=== PATIENT | male | born 1960 | race African-American/Black ===

== ENCOUNTER 2017-04-29 12:47 | Emergency (ER) | payer BC, MEDICAID ==
[~2017-04-29] VITALS: Ht 182.9 cm; Wt 108.9 kg
[~2017-04-29 12:47] MED LIST: ASPI81TA2 PO; CARV6.252 PO; HYDR-548 PO; MULT1CAP34 PO; SIMV10TA6 PO
--- NOTE | 2017-04-29 12:55 | NUR ---
BIB , C/O X 3 DAYS C/O HALLUCINATIONS, STATES SI WITH NO PLAN. DENIES HI, NAD NOTED, VSS, WAITING FOR MD.
[2017-04-29 13:19] LABS: BASOPHILS # (AUTO) 0.1 /CMM (0.0-0.2); BASOPHILS % (AUTO) 0.8 % (0.0-2.0); EOSINOPHILS # (AUTO) 0.2 /CMM (0.0-0.7); EOSINOPHILS % (AUTO) 2.1 % (0.0-6.0); HEMATOCRIT 52 % (39-51); HEMOGLOBIN 17.3 g/dL (13.5-17.5); LYMPHOCYTES # (AUTO) 3.2 /CMM (0.8-4.8); LYMPHOCYTES % (AUTO) 28.1 % (20.0-44.0); MEAN CORPUSCULAR HEMOGLOBIN 29 PG (26.0-33.0); MEAN CORPUSCULAR HGB CONC 34 g/dl (31.0-36.0); MEAN CORPUSCULAR VOLUME 87 fL (80-96); MONOCYTES # (AUTO) 1.1 /CMM (0.1-1.30); MONOCYTES % (AUTO) 9.7 % (2.0-12.0); NEUTROPHILS # (AUTO) 6.7 /CMM (1.8-8.9); NEUTROPHILS % (AUTO) 59.3 % (43.0-81.0); PLATELET COUNT (AUTO) 194 /CMM (150-450); RDW COEFFICIENT OF VARIATION 12.6 (11.5-15.0); RED BLOOD CELL COUNT(AUTO) 5.95 MIL/uL (4.5-6.0); WHITE BLOOD COUNT (AUTO) 11.3 K/uL (4.3-11.0)
[2017-04-29 13:26] LABS: APPEARANCE,URINE Clear (CLEAR); BILIRUBIN,URINE MODERATE (NEGATIVE); BLOOD, URINE Negative Ery/uL (NEGATIVE); COLOR,URINE Dark (YELLOW); KETONES,URINE Trace (NEGATIVE); LEUKOCYTE ESTERASE ,URINE Negative (NEGATIVE); NITRITE, URINE Negative (NEGATIVE); PROTEIN,URINE 30 mg/dl (NEGATIVE); UGLUCOSE Negative (NEGATIVE)
[2017-04-29 13:29] LABS: CALCIUM, SERUM 9.6 mg/dL (8.5-10.1); CARBON DIOXIDE 24 mmol/L (21-32); CHLORIDE 107 mmol/L (98-107); GLUCOSE 88 mg/dL (74-106); POTASSIUM 4.1 mmol/L (3.5-5.1); SODIUM SERUM 141 mmol/L (136-145); UREA NITROGEN, BLOOD 24 mg/dL (7-18)
[2017-04-29 13:34] LABS: ACETAMINOPHEN < 10 ug/ml (10-30); ALANINE AMINOTRANSFERASE 27 U/L (12-78); ALBUMIN 3.8 g/dL (3.4-5.0); ALCOHOL, BLOOD < 3 mg/dL (0-0); ALKALINE PHOSPHATASE 97 U/L (46-116); ASPARTATE AMINOTRANSFERASE 29 U/L (15-37); BILIRUBIN,DIRECT 0.2 mg/dL (0.0-0.2); BILIRUBIN,TOTAL 0.6 mg/dL (0.2-1.0); SALICYLATE 3.5 mg/dL (2.8-20.0); TOTAL PROTEIN, SERUM 7.7 g/dL (6.4-8.2)
[2017-04-29 13:41] LABS: BACTERIA,URINE Rare /HPF (None Seen); RBC,URINE 0-2 /HPF (0-2); WBC,URINE 0-2 /HPF (0-3)
[2017-04-29 13:42] LABS: MUCUS,URINE Few /LPF (None Seen); SQUAMOUS EPITHELIAL CELL,UR Moderate /HPF (None Seen)
--- NOTE | 2017-04-29 14:52 | NUR ---
PT ACCEPTED TO [facility] [address] LOZANO ACCEPTING PHYSICIAN
--- NOTE | 2017-04-29 14:55 | NUR ---
CALLED [facility], NO RESPONSE
--- NOTE | 2017-04-29 15:06 | NUR ---
CALLED [facility], NO RESPONSE
--- NOTE | 2017-04-29 15:08 | NUR ---
CALLED [facility], NO RESPONSE
--- NOTE | 2017-04-29 15:09 | NUR ---
CALLED [facility], LINE DISCONNECTED
--- NOTE | 2017-04-29 15:28 | NUR ---
CALLED [facility] TO SET UP BLS TRANSPORT HOME, SPOKE WITH DE. AFTER 15 MINUTES LINE WAS DISCONNECTED
--- NOTE | 2017-04-29 15:28 | NUR ---
DE FROM [facility] CALLED BACK TO INFORM THAT LINES WERE DISCONNECTED AND SYSTEM IS DOWN. SHE MAY BE ABLE TO PROVIDE A 90 MINUTE ETA, HOWEVER THEIR SYSTEM IS DOWN AND SHE IS UNABLE TO PROVIDE A TRIP NUMBER
[2017-04-29 15:55] VITALS: BP 127/70
--- NOTE | 2017-04-29 15:55 | NUR ---
Patient is resting comfortably in bed with eyes closed. Easily aroused. VSS
--- NOTE | 2017-04-29 16:42 | NUR ---
REPORT GIVEN TO VIVIANA.
== END 2017-04-29 17:01 ==
LOC: ER 12:50
DX: R45.851 Suicidal ideations (principal); I10 Essential (primary) hypertension; J44.9 Chronic obstructive pulmonary disease, unspecified; F17.210 Nicotine dependence, cigarettes, uncomplicated; Z79.82 Long term (current) use of aspirin
CPT/HCPCS: 36415; 80048; 80076; 80305; 80329; 81001; 85025; 99285; 99406; A4606; G0480 ×2; Z7610; 81000-TC

== ENCOUNTER 2021-06-10 18:08 | Inpatient (IN) | payer MEDICARE, OTHER ==
[~2021-06-10] VITALS: Ht 175.3 cm; Wt 86.2 kg
[~2021-06-10 18:08] MED LIST changes: +ASPI-1169 PO; -ASPI81TA2 PO; +HYDR-4354 PO; -HYDR-548 PO; -SIMV10TA6 PO; +SIMV10TA98 PO
[2021-06-11] MEDS ORDERED: DIVA-78 PO (13:29)
[2021-06-11] MEDS ORDERED: HYDR30CR79 RC (13:29)
[2021-06-11] MEDS ORDERED: LISI10TA29 PO (13:29)
[2021-06-11] MEDS ORDERED: POLY17PO4 PO (13:29)
[2021-06-11] MEDS ORDERED: TRAM50TA PO (13:29)
[2021-06-11] MEDS ORDERED: ARIP2TAB3 PO (13:29)
[2021-06-11] MEDS ORDERED: METF-440 PO (13:37)
[2021-06-11 14:00] VITALS: BP 132/79
[2021-06-11] MEDS ORDERED: BLOOD SUGAR DIAGNOSTIC 1 EACH STRIP IN ONE (14:00)
[2021-06-11] MEDS ORDERED: MAGNESIUM HYDROXIDE 30 ML UDC PO PRN (14:00)
[2021-06-11] MEDS ORDERED: ACETAMINOPHEN 325 MG TABLET PO PRN (14:00)
[2021-06-11] MEDS ORDERED: MAG HYDROX/AL HYDROX/SIMETH 30 ML UDC PO PRN (14:00)
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
--- NOTE | 2021-06-11 15:19 | NUR ---
GPS/RN PT REUSED ACCUCHECK ON ADMISSION OFFERED X3
[2021-06-11 16:00] VITALS: BP 132/79
[2021-06-11] MEDS: METFORMIN 500 MG TABLET PO SCH (16:59)
[2021-06-11] MEDS ORDERED: DEXTROSE 50%-WATER 50 ML DISP.SYRIN IV PRN (17:00)
[2021-06-11] MEDS ORDERED: TRAMADOL HCL 50 MG TABLET PO PRN (17:00)
[2021-06-11] MEDS ORDERED: HYDROCORTISONE CR 30 GM TUBE RC PRN ×2 (17:00)
[2021-06-11] MEDS ORDERED: *INSULIN REGULAR(HUMULIN R)HUM 100 UNIT/ML VIAL SQ PRN (17:00)
[2021-06-11] MEDS: BLOOD SUGAR DIAGNOSTIC 1 EACH STRIP VI SCH ×2 (17:19→21:25)
[2021-06-11] MEDS: SIMVASTATIN 10 MG TABLET PO SCH (18:16)
[2021-06-11 20:02] VITALS: BP 123/76
[2021-06-12] MEDS: LORAZEPAM 1 MG TABLET PO PRN ×2 (06:16→13:09)
--- NOTE | 2021-06-12 06:18 | NUR ---
GPS RN NOTES: PATIENT IS AGITATED, ANXIOUS, RESTLESS, PACING, LOUD, STATING"I WANT OUT OF HERE RIGHT NOW". REFUSING REDIRECTION. ATIVAN 1MG GIVEN PO AT 0616. WILL CONTINUE TO MONITOR. AND ENDORSE TO AM SHIFT.
[2021-06-12] MEDS: POLYETHYLENE GLYCOL 3350 17 GM POWD.PACK PO SCH (06:28)
--- NOTE | 2021-06-12 07:18 | NUR ---
RN NOTE RECEIVED PATIENT RESTING IN BED. PATIENT IS BREATHING EVENLY AND NONLABORED ON ROOM AIR. NO SIGNS OF DISTRESS NOTED. PATIENT DENIES PAIN OR DISCOMFORT. SAFETY MEASURES IN PLACE BED LOW LOCKED. WILL CONTINUE TO MONITOR
[2021-06-12] MEDS: BLOOD SUGAR DIAGNOSTIC 1 EACH STRIP VI SCH ×2 (07:43→11:17)
[2021-06-12] MEDS: INSULIN REGULAR, HUMAN 100 UNIT/ML 3 ML VIAL SQ PRN ×2 (07:43→11:17)
[2021-06-12 07:55] LABS: ALBUMIN 2.7 g/dL (3.4-5.0); BILIRUBIN,TOTAL 0.3 mg/dL (0.2-1.0); CALCIUM, SERUM 8.6 mg/dL (8.5-10.1); CREATININE 0.8 mg/dL (0.6-1.3); POTASSIUM 4.4 mmol/L (3.5-5.1); TOTAL PROTEIN, SERUM 7.3 g/dL (6.4-8.2)
[2021-06-12 08:00] VITALS: BP 142/76
[2021-06-12 08:15] LABS: THYROID STIMULATING HORMONE 1.084 uIU/mL (0.358-3.74)
[2021-06-12] MEDS: ASPIRIN 81 MG TAB.CHEW PO SCH (08:27)
[2021-06-12] MEDS: LISINOPRIL (10MG) 10 MG TABLET PO SCH (08:28)
[2021-06-12] MEDS: MULTIVITAMINS,THERAGRAN 1 UDTAB TABLET PO SCH (08:28)
[2021-06-12] MEDS: METFORMIN 500 MG TABLET PO SCH (08:28)
[2021-06-12] MEDS: risperiDONE 1 MG TABLET PO SCH ×2 (09:31→17:02)
[2021-06-12] MEDS: DIVALPROEX SODIUM 250 MG TABLET.DR PO SCH ×3 (09:31→17:02)
--- NOTE | 2021-06-12 11:51 | NUR ---
RN NOTE MD GAVE NEW ORDER TO DC THE ACCUCHECKS AND CONTINUE ON ORAL MEDICATIONS
--- NOTE | 2021-06-12 13:09 | NUR ---
GPS RN NOTES: PATIENT IS AGITATED, ANXIOUS, RESTLESS, PACING, LOUD, STATING"I WANT OUT OF HERE RIGHT NOW". REFUSING REDIRECTION. ATIVAN 1MG GIVEN PO AT 1309. WILL CONTINUE TO MONITOR.
[2021-06-12 16:00] VITALS: BP 100/59
[2021-06-12] MEDS: SIMVASTATIN 10 MG TABLET PO SCH (17:02)
--- NOTE | 2021-06-12 18:02 | NUR ---
RN CLOSING NOTES PATIENT AWAKE IN BED AT THIS TIME. PATIENT REMAINED STABLE THROUGHOUT SHIFT. PT IS CALM AT THIS TIME, PT DENIES SI/HI. DENIES VISUAL AND AUDITORY HALLUCINATION. NO TREMORS OR EPS NOTED. SAFETY PRECAUTIONS IN PLACE AND MAINTAINED AT ALL TIMES. BED IN LOWEST LOCKED POSITION, HOB ELEVATED, SIDE RAILS UP X2, CALL LIGHT AND TABLE WITHIN REACH, WILL ENDORSE TO ONCOMING SHIFT
[2021-06-12 19:54] VITALS: BP 90/50
[2021-06-13] MEDS: POLYETHYLENE GLYCOL 3350 17 GM POWD.PACK PO SCH (06:16)
[2021-06-13 08:00] VITALS: BP 101/64
[2021-06-13] MEDS: LISINOPRIL (10MG) 10 MG TABLET PO SCH (09:00)
[2021-06-13] MEDS: ASPIRIN 81 MG TAB.CHEW PO SCH (10:16)
[2021-06-13] MEDS: MULTIVITAMINS,THERAGRAN 1 UDTAB TABLET PO SCH (10:17)
[2021-06-13] MEDS: DIVALPROEX SODIUM 250 MG TABLET.DR PO SCH ×3 (10:17→17:34)
[2021-06-13] MEDS: risperiDONE 1 MG TABLET PO SCH ×2 (10:17→17:34)
--- NOTE | 2021-06-13 11:53 | NUR ---
CANDIDO Initial Discharge Plan: Patient is currently homeless and would want a SNF. CANDIDO will work with the MD and pt to coordinate appropriate discharge.
--- NOTE | 2021-06-13 12:45 | NUR ---
Social Work Note/Substance Abuse Intervention: SW attempted to provide with a brief substance abuse intervention and referred to [facility] ([phone]), [facility] ([phone]), and [facility] ([phone]). Pt refused for brief substance abuse intervention and denied use of drugs.
[2021-06-13 16:00] VITALS: BP 100/56
[2021-06-13] MEDS: SIMVASTATIN 10 MG TABLET PO SCH (17:34)
[2021-06-13 19:47] VITALS: BP 102/58
[2021-06-13] MEDS: LORAZEPAM 1 MG TABLET PO PRN (20:39)
[2021-06-13] MEDS: ZOLPIDEM TARTRATE 5 MG TABLET PO PRN (22:34)
[2021-06-14] MEDS: POLYETHYLENE GLYCOL 3350 17 GM POWD.PACK PO SCH (05:12)
[2021-06-14 08:00] VITALS: BP 112/60
[2021-06-14] MEDS: risperiDONE 1 MG TABLET PO SCH ×2 (09:00→17:00)
[2021-06-14] MEDS: MULTIVITAMINS,THERAGRAN 1 UDTAB TABLET PO SCH (09:00)
[2021-06-14] MEDS: ASPIRIN 81 MG TAB.CHEW PO SCH (09:00)
[2021-06-14] MEDS: DIVALPROEX SODIUM 250 MG TABLET.DR PO SCH ×3 (09:00→17:00)
[2021-06-14] MEDS: LISINOPRIL (10MG) 10 MG TABLET PO SCH (09:00)
--- NOTE | 2021-06-14 10:57 | NUR ---
WOUND CARE CONSULT: PT SEEN FOR RAISED LESIONS TO SCROTUM AND PERIANAL AREA, PRESENT ON ADMISSION. DEFER TO PMD FOR LESIONS, UNKNOWN ETIOLOGY.
--- NOTE | 2021-06-14 12:00 | NUR ---
PT SEEN BY GENARO DUNBAR MIXER DRIVER, FOR RAISED LESIONS TO SCROTUM AND PERIANAL AREA, PRESENT ON ADMISSION. NNO AT THIS TIME.
[2021-06-14 16:01] VITALS: BP 102/61
[2021-06-14] MEDS: SIMVASTATIN 10 MG TABLET PO SCH (17:00)
[2021-06-14 20:10] VITALS: BP 91/37
[2021-06-15] MEDS: POLYETHYLENE GLYCOL 3350 17 GM POWD.PACK PO SCH (06:52)
[2021-06-15 08:00] VITALS: BP 107/61
--- NOTE | 2021-06-15 08:39 | NUR ---
SNF Referral: SW sent clinicals to [facility] for [facility] for placement option ([phone]).
--- NOTE | 2021-06-15 09:31 | NUR ---
CANDIDO Family Contact: CANDIDO spoke with patient's brother Breonna who lives in [place] ([phone]) and gathered collateral. Brother was concerned if pt has prostate cancer. CANDIDO notified pt's assigned nurse PEYTON Elias to notify medical doctor.
[2021-06-15] MEDS: risperiDONE 1 MG TABLET PO SCH ×2 (09:51→16:34)
[2021-06-15] MEDS: ASPIRIN 81 MG TAB.CHEW PO SCH (09:51)
[2021-06-15] MEDS: DIVALPROEX SODIUM 250 MG TABLET.DR PO SCH ×3 (09:52→16:34)
[2021-06-15] MEDS: MULTIVITAMINS,THERAGRAN 1 UDTAB TABLET PO SCH (09:52)
[2021-06-15] MEDS: LISINOPRIL (10MG) 10 MG TABLET PO SCH (09:52)
--- NOTE | 2021-06-15 14:29 | NUR ---
SW Note: SW attempted to conduct individual therapy. Pt was fixated on discharge and his placement. He was vague with this SW and was wanting to discuss about placement only. SW unable to conduct proper therapy at this time.
[2021-06-15 16:00] VITALS: BP 100/51
[2021-06-15] MEDS: SIMVASTATIN 10 MG TABLET PO SCH (17:31)
[2021-06-15 20:00] VITALS: BP 102/57
[2021-06-15 20:01] LABS: PROSTATE SPECIFIC ANTIGEN SCR 1.06 ng/mL (0.00-4.00)
[2021-06-15] MEDS: ZOLPIDEM TARTRATE 5 MG TABLET PO PRN (22:18)
[2021-06-16] MEDS: POLYETHYLENE GLYCOL 3350 17 GM POWD.PACK PO SCH (05:53)
[2021-06-16 08:00] VITALS: BP 100/60
[2021-06-16] MEDS: LISINOPRIL (10MG) 10 MG TABLET PO SCH (08:32)
[2021-06-16] MEDS: MULTIVITAMINS,THERAGRAN 1 UDTAB TABLET PO SCH (08:32)
[2021-06-16] MEDS: DIVALPROEX SODIUM 250 MG TABLET.DR PO SCH ×2 (08:32→16:34)
[2021-06-16] MEDS: risperiDONE 1 MG TABLET PO SCH ×2 (08:32→16:34)
[2021-06-16] MEDS: ASPIRIN 81 MG TAB.CHEW PO SCH (08:34)
[2021-06-16 16:00] VITALS: BP 105/63
--- NOTE | 2021-06-16 16:08 | NUR ---
Court Hearing: Patient's court hearing for 2370 was today and it was upheld for GD.
[2021-06-16] MEDS: SIMVASTATIN 10 MG TABLET PO SCH (17:33)
[2021-06-16 20:00] VITALS: BP 120/74
[2021-06-16] MEDS: ZOLPIDEM TARTRATE 5 MG TABLET PO PRN (21:42)
--- NOTE | 2021-06-16 21:45 | NUR ---
RN NOTES : INSOMNIA PT. C/O UNABLE TO SLEEP AMBIEN 5 MG PO PRN, GIVEN PER PT. REQUEST, WILL CONTINUE TO MONITOR.
[2021-06-17] MEDS: POLYETHYLENE GLYCOL 3350 17 GM POWD.PACK PO SCH (05:32)
--- NOTE | 2021-06-17 06:49 | NUR ---
RN NOTES: PT. REFUSED TO PROVIDED URINE SAMPLE , ENCOURAGED X 3 STILL REFUSED.
[2021-06-17 08:00] VITALS: BP 134/63
[2021-06-17] MEDS: LISINOPRIL (10MG) 10 MG TABLET PO SCH (08:50)
[2021-06-17] MEDS: DIVALPROEX SODIUM 250 MG TABLET.DR PO SCH ×2 (08:50→16:13)
[2021-06-17] MEDS: MULTIVITAMINS,THERAGRAN 1 UDTAB TABLET PO SCH (08:50)
[2021-06-17] MEDS: risperiDONE 1 MG TABLET PO SCH ×2 (08:50→16:12)
[2021-06-17] MEDS: ASPIRIN 81 MG TAB.CHEW PO SCH (08:52)
[2021-06-17 16:00] VITALS: BP 99/59
[2021-06-17] MEDS: SIMVASTATIN 10 MG TABLET PO SCH (17:15)
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
[2021-06-17 20:08] VITALS: BP 99/58
[2021-06-17] MEDS: ZOLPIDEM TARTRATE 5 MG TABLET PO PRN (22:05)
--- NOTE | 2021-06-17 22:06 | NUR ---
RN NOTES : INSOMNIA PT. C/O UNABLE TO SLEEP AMBIEN 5 MG PO PRN, GIVEN PER PT. REQUEST, WILL CONTINUE TO MONITOR.
[2021-06-18] MEDS: POLYETHYLENE GLYCOL 3350 17 GM POWD.PACK PO SCH (06:16)
[2021-06-18 08:00] VITALS: BP 104/63
[2021-06-18] MEDS: LISINOPRIL (10MG) 10 MG TABLET PO SCH (08:27)
[2021-06-18] MEDS: ASPIRIN 81 MG TAB.CHEW PO SCH (08:37)
[2021-06-18] MEDS: risperiDONE 1 MG TABLET PO SCH ×2 (08:37→18:24)
[2021-06-18] MEDS: DIVALPROEX SODIUM 250 MG TABLET.DR PO SCH ×2 (08:37→18:25)
[2021-06-18] MEDS: MULTIVITAMINS,THERAGRAN 1 UDTAB TABLET PO SCH (08:38)
[2021-06-18 16:00] VITALS: BP 116/67
[2021-06-18 18:06] LABS: *HIV-1 RNA BY PCR <20 copies/mL (.)
[2021-06-18] MEDS: SIMVASTATIN 10 MG TABLET PO SCH (18:25)
[2021-06-18 20:06] VITALS: BP 106/69
[2021-06-18] MEDS: ZOLPIDEM TARTRATE 5 MG TABLET PO PRN (22:17)
--- NOTE | 2021-06-18 22:18 | NUR ---
RN NOTES : INSOMNIA PT. C/O UNABLE TO SLEEP AMBIEN 5 MG PO PRN, GIVEN PER PT. REQUEST, WILL CONTINUE TO MONITOR.
[2021-06-19] MEDS: POLYETHYLENE GLYCOL 3350 17 GM POWD.PACK PO SCH (06:04)
[2021-06-19 08:00] VITALS: BP 146/83
[2021-06-19] MEDS: DIVALPROEX SODIUM 250 MG TABLET.DR PO SCH ×2 (08:52→17:47)
[2021-06-19] MEDS: ASPIRIN 81 MG TAB.CHEW PO SCH (08:52)
[2021-06-19] MEDS: LISINOPRIL (10MG) 10 MG TABLET PO SCH (08:53)
[2021-06-19] MEDS: risperiDONE 1 MG TABLET PO SCH ×2 (08:53→17:47)
[2021-06-19] MEDS: MULTIVITAMINS,THERAGRAN 1 UDTAB TABLET PO SCH (08:53)
[2021-06-19 16:00] VITALS: BP 111/67
[2021-06-19] MEDS: SIMVASTATIN 10 MG TABLET PO SCH (17:54)
[2021-06-19 19:48] VITALS: BP 107/64
[2021-06-19 20:15] VITALS: BP 107/64
--- NOTE | 2021-06-19 23:30 | NUR ---
rRN NOTE: REFUSED SKIN ASSESSMENT PATIENT REFUSED WEEKLY SKIN ASSESSMENT X 3 DESPITE OF RISKS AND BENEFITS EXPLANATIONS.
[2021-06-20] MEDS: POLYETHYLENE GLYCOL 3350 17 GM POWD.PACK PO SCH (06:08)
[2021-06-20 08:00] VITALS: BP 130/52
[2021-06-20] MEDS: ASPIRIN 81 MG TAB.CHEW PO SCH (09:08)
[2021-06-20] MEDS: MULTIVITAMINS,THERAGRAN 1 UDTAB TABLET PO SCH (09:09)
[2021-06-20] MEDS: risperiDONE 1 MG TABLET PO SCH ×2 (09:09→17:41)
[2021-06-20] MEDS: LISINOPRIL (10MG) 10 MG TABLET PO SCH (09:09)
[2021-06-20] MEDS: DIVALPROEX SODIUM 250 MG TABLET.DR PO SCH ×2 (09:09→17:41)
[2021-06-20 09:34] LABS: CALCIUM, SERUM 8.7 mg/dL (8.5-10.1); CREATININE 0.8 mg/dL (0.6-1.3); POTASSIUM 4.7 mmol/L (3.5-5.1)
[2021-06-20 16:00] VITALS: BP 106/60
[2021-06-20] MEDS: SIMVASTATIN 10 MG TABLET PO SCH (18:10)
[2021-06-20 19:45] VITALS: BP 119/66
[2021-06-20] MEDS: ZOLPIDEM TARTRATE 5 MG TABLET PO PRN (21:05)
--- NOTE | 2021-06-20 21:05 | NUR ---
RN NOTES : INSOMNIA PATIENT C/O UNABLE TO SLEEP. PRN AMBIEN 5MG PO GIVEN ORDERED PER PT. REQUEST. WILL CONTINUE TO MONITOR.
[2021-06-21] MEDS: POLYETHYLENE GLYCOL 3350 17 GM POWD.PACK PO SCH (05:08)
[2021-06-21 08:00] VITALS: BP 100/57
--- NOTE | 2021-06-21 08:07 | NUR ---
SW Discharge Note: Patient will be discharged to [facility] to [facility] [address] [place] [address]; . Please arrange Ambulance transportation for patient to be picked up at 2PM. Certified Dietary Manager spoke with RICHA, Engraver Lettering at [facility]; ([phone], who stated patient will be accepted at facility today. Patient is alert and oriented x3, and is not able to plan for self-care at this time, but is willing to accept care provided for her at the facility. Patient denies any suicidal or homicidal ideations. Patient is aware and agreeable with discharge plans. Patient does not have any support at this time. Patient will follow-up at the facility with Dr. Edwards (psychiatrist) [address] [address]; ([phone]) and Criminal Justice Lawyer Dr. Boateng at [address], [place] [address]; ([phone]). Patient signed the homeless waiver upon discharge and a copy was placed in the chart. Homeless resources were provided and include [address] information line for shelters and homeless resources. A copy of all resources given to patient was also placed in the chart. Patient was provided with a brief substance abuse intervention and referred to [facility] ([phone]), [facility] ([phone]), and [facility] ([phone]) for abusing drugs and smoking
[2021-06-21 08:38] VITALS: BP 100/57
[2021-06-21] MEDS: LISINOPRIL (10MG) 10 MG TABLET PO SCH (08:38)
[2021-06-21] MEDS: MULTIVITAMINS,THERAGRAN 1 UDTAB TABLET PO SCH (08:38)
[2021-06-21] MEDS: risperiDONE 1 MG TABLET PO SCH (08:38)
[2021-06-21] MEDS: ASPIRIN 81 MG TAB.CHEW PO SCH (08:38)
[2021-06-21] MEDS: DIVALPROEX SODIUM 250 MG TABLET.DR PO SCH (08:38)
--- NOTE | 2021-06-21 14:20 | NUR ---
Patient has been discharged to [facility] facility to [facility] via Ambulance transportation at 1410pm. Patient is alert and oriented x3, with steady gait, however, pt is not able to plan for self-care at this time, but is willing to accept care provided for her at the facility. Patient denies any suicidal or homicidal ideations. Patient is aware and agreeable with discharge plans. Patient does not have any support at this time. Patient will follow-up at the facility with Dr. Edwards (psychiatrist) and [place] Dr. Boateng. Patient signed the homeless waiver upon discharge and a copy was placed in the chart. Homeless resources were provided and include [address] information line for shelters and homeless resources. A copy of all resources given to patient was also placed in the chart. Patient was provided with a brief substance abuse intervention and referred to [facility] ([phone]), [facility] ([phone]), and [facility] ([phone]) for abusing drugs and smoking. Exit care documents signed and given to Pt in discharge packet along with instructions for after care. Medication reconciliation given in discharge packet. all valuables and belongings returned and signed.
== END 2021-06-21 14:10 | DRG 885 ==
LOC: GPS 06-11 13:07
PROVIDERS: ADMIT Psychiatry & Neurology Psychiatry; ATTEND Student in an Organized Health Care Education/Training Program
DX: F31.64 Bipolar disorder, current episode mixed, severe, with psychotic features (principal); E44.0 Moderate protein-calorie malnutrition; E86.0 Dehydration; E78.5 Hyperlipidemia, unspecified; I10 Essential (primary) hypertension; Z59.00 Homelessness unspecified; F17.210 Nicotine dependence, cigarettes, uncomplicated; F41.9 Anxiety disorder, unspecified; F15.10 Other stimulant abuse, uncomplicated; Z68.28 Body mass index [BMI] 28.0-28.9, adult; F29 Unspecified psychosis not due to a substance or known physiological condition; E11.9 Type 2 diabetes mellitus without complications; G47.30 Sleep apnea, unspecified; A63.0 Anogenital (venereal) warts; Z79.84 Long term (current) use of oral hypoglycemic drugs; Z20.822 Contact with and (suspected) exposure to COVID-19
CPT/HCPCS: 36415; 80048-TC; 80053-TC; 80061-TC; 80164-TC; 82962-TC; 84153-TC; 84154-TC; 84443-TC; 87081-TC; 87536; 97116-TC; 97530-TC; J1815

== ENCOUNTER 2021-07-23 12:13 | Emergency (ER) | payer MEDICARE, OTHER ==
[~2021-07-23] VITALS: Ht 175.3 cm; Wt 98.9 kg
[~2021-07-23 12:13] MED LIST changes: -CARV6.252 PO; -HYDR-4354 PO; +HYDR30CR79 RC; +LISI10TA29 PO; +METF-440 PO; +POLY17PO4 PO; +TRAM50TA PO
--- NOTE | 2021-07-23 12:13 | NUR ---
PT BIB SELF C/O DEPRESSION. REQUESTING [facility]CH [facility]. PT IS AAOX4, NOT IN RESPIRATORY DISTRESS, V/S STABLE, KEPT RESTED AND COMFORTABLE. WILL CONTINUE TO MONITOR.
--- NOTE | 2021-07-23 12:13 | NUR ---
PT BIB SELF C/O DEPRESSION. RE[facility]. PT IS AAOX4, NOT IN RESPIRATORY DISTRESS, V/S STABLE, KEPT RESTED AND COMFORTABLE. WILL CONTINUE TO MONITOR.
--- NOTE | 2021-07-23 12:57 | NUR ---
SEEN AND EXAMINED BY .
--- NOTE | 2021-07-23 12:57 | NUR ---
SEEN AND EXAMINED BY .
[2021-07-23 14:47] LABS: BASOPHILS # (AUTO) 0.1 K/uL (0.0-0.2); BASOPHILS % (AUTO) 0.8 % (0.0-2.0); EOSINOPHILS % (AUTO) 2.4 % (0.0-6.0); HEMATOCRIT 41 % (39-51); HEMOGLOBIN 13.3 g/dL (13.5-17.5); LYMPHOCYTES # (AUTO) 2.5 K/uL (0.8-4.8); LYMPHOCYTES % (AUTO) 25.2 % (20.0-44.0); MEAN CORPUSCULAR HGB CONC 33 g/dl (31.0-36.0); MEAN CORPUSCULAR VOLUME 89 fL (80-96); MONOCYTES # (AUTO) 0.9 K/uL (0.1-1.30); MONOCYTES % (AUTO) 9.2 % (2.0-12.0); NEUTROPHILS # (AUTO) 6.2 K/uL (1.8-8.9); NEUTROPHILS % (AUTO) 62.4 % (43.0-81.0); PLATELET COUNT (AUTO) 211 K/uL (150-450); RED BLOOD CELL COUNT(AUTO) 4.58 MIL/uL (4.5-6.0); WHITE BLOOD COUNT (AUTO) 9.9 K/uL (4.3-11.0)
[2021-07-23 15:05] LABS: BILIRUBIN,URINE NEGATIVE (NEGATIVE); COLOR,URINE YELLOW (YELLOW); LEUKOCYTE ESTERASE ,URINE NEGATIVE (NEGATIVE); NITRITE, URINE POSITIVE (NEGATIVE); PROTEIN,URINE NEGATIVE (NEGATIVE); UGLUCOSE NEGATIVE (NEGATIVE)
[2021-07-23 15:36] LABS: ALANINE AMINOTRANSFERASE 15 U/L (12-78); ALKALINE PHOSPHATASE 85 U/L (46-116); ASPARTATE AMINOTRANSFERASE 19 U/L (15-37); BILIRUBIN,DIRECT 0.2 mg/dL (0.0-0.2); BILIRUBIN,TOTAL 0.4 mg/dL (0.2-1.0); CALCIUM, SERUM 8.3 mg/dL (8.5-10.1); CARBON DIOXIDE 28 mmol/L (21-32); CHLORIDE 105 mmol/L (98-107); CREATININE 0.8 mg/dL (0.6-1.3); GLUCOSE 87 mg/dL (74-106); POTASSIUM 3.9 mmol/L (3.5-5.1); SODIUM SERUM 139 mmol/L (136-145); TOTAL PROTEIN, SERUM 7.6 g/dL (6.4-8.2); UREA NITROGEN, BLOOD 18 mg/dL (7-18)
[2021-07-23 15:37] LABS: BACTERIA,URINE 4+ /HPF (None Seen); RBC,URINE 0-2 /HPF (0-2); SQUAMOUS EPITHELIAL CELL,UR 0-2 /HPF (None Seen); WBC,URINE 0-2 /HPF (0-3)
[2021-07-23 16:55] LABS: ACETAMINOPHEN < 2 ug/ml (10-30); ALCOHOL, BLOOD < 3 mg/dL (0-0)
--- NOTE | 2021-07-24 00:51 | NUR ---
PT ACCEPTED TO [facility] BY DR ORTA. # FOR REPORT [phone]
--- NOTE | 2021-07-24 00:51 | NUR ---
PT ACCEPTED TO [facility] BY DR ORTA. # FOR REPORT [phone]
--- NOTE | 2021-07-24 01:42 | NUR ---
REPORT GIVEN TO PEYTON JHA
--- NOTE | 2021-07-24 01:42 | NUR ---
REPORT GIVEN TO PEYTON JHA
--- NOTE | 2021-07-24 06:58 | NUR ---
PICKUP ETA 35 MINS
--- NOTE | 2021-07-24 06:58 | NUR ---
PICKUP ETA 35 MINS
[2021-07-24 07:30] VITALS: BP 121/77
--- NOTE | 2021-07-24 07:42 | NUR ---
[facility] AT BEDSIDE.
--- NOTE | 2021-07-24 07:42 | NUR ---
[facility] AT BEDSIDE.
== END 2021-07-24 07:45 ==
LOC: ER 12:16
DX: F33.3 Major depressive disorder, recurrent, severe with psychotic symptoms (principal); I10 Essential (primary) hypertension; Z20.822 Contact with and (suspected) exposure to COVID-19; E11.9 Type 2 diabetes mellitus without complications; Z79.84 Long term (current) use of oral hypoglycemic drugs; Z79.899 Other long term (current) drug therapy; F17.200 Nicotine dependence, unspecified, uncomplicated
CPT/HCPCS: 36415; 80048-TC; 80076-TC; 81001; 85025-TC; 87086-TC; C9803; G0480

== ENCOUNTER 2022-12-13 03:48 | Emergency (ER) | payer BC, OTHER ==
[~2022-12-13] VITALS: Ht 172.7 cm; Wt 77.1 kg
[2022-12-13 04:09] VITALS: BP 137/90
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
--- NOTE | 2022-12-13 04:10 | NUR ---
Koko wallace in [place] - 12/13/22 at 0424 by DANIS Pt requesting voluntary psych admit
--- NOTE | 2022-12-13 04:27 | NUR ---
Patient discharged to home in stable condition. Written and verbal after care instructions given. Patient verbalizes understanding of instruction. Denies SI/HI
[2022-12-13] MEDS ORDERED: IBUPROFEN 400 MG TABLET PO ONE (04:30)
== END 2022-12-13 04:39 | disposition home or self-care (01) ==
LOC: ER 03:48
DX: M54.9 Dorsalgia, unspecified (principal); I10 Essential (primary) hypertension; E11.9 Type 2 diabetes mellitus without complications; Z79.84 Long term (current) use of oral hypoglycemic drugs; F17.200 Nicotine dependence, unspecified, uncomplicated; Z60.2 Problems related to living alone; Z79.899 Other long term (current) drug therapy